=== PATIENT | female | born 1975 | race Caucasian/White ===

== ENCOUNTER 2024-08-17 05:15 | Day surgery (SDC) | payer BC, OTHER ==
[2024-08-17] MEDS ORDERED: Lactated Ringers 1,000 ML IV ONE (05:16)
[2024-08-17] MEDS ORDERED: Propofol 200 MG/20 ML SDV IV ONE (05:16)
[2024-08-17] MEDS ORDERED: Lidocaine 2% 20 ML MDV NERVRT ONE (05:16)
[2024-08-17] MEDS ORDERED: Propofol 200 MG/20 ML SDV ONE (05:40)
[2024-08-17] MEDS ORDERED: Lidocaine 2% 20 ML MDV ONE (05:41)
[2024-08-17] MEDS: Lactated Ringers 1,000 ML IV SCH (05:56)
== END 2024-08-17 08:00 | disposition home or self-care (01) ==
LOC: DL.ENDO 05:15
PROVIDERS: ATTEND Internal Medicine Gastroenterology
DX: Z12.11 Encounter for screening for malignant neoplasm of colon (principal); I10 Essential (primary) hypertension; K21.9 Gastro-esophageal reflux disease without esophagitis; Z79.899 Other long term (current) drug therapy
CPT/HCPCS: 45378; J2003; J2704; J7120